=== PATIENT | female | born 1955 | race Caucasian/White ===

== ENCOUNTER 2022-01-09 11:23 | Outpatient (CLI) | payer MEDICARE, BC ==
[2022-01-09] MEDS ORDERED: Iopamidol 370 76% 100 ML VIAL ONE (13:53)
== END 2022-01-09 11:24 | disposition home or self-care (01) ==
LOC: CT 11:23
PROVIDERS: ATTEND Thoracic Surgery (Cardiothoracic Vascular Surgery)
DX: I72.2 Aneurysm of renal artery (principal); K57.30 Diverticulosis of large intestine without perforation or abscess without bleeding; M43.17 Spondylolisthesis, lumbosacral region; N28.0 Ischemia and infarction of kidney; N13.30 Unspecified hydronephrosis
CPT/HCPCS: 74174; 82565; Q9967